=== PATIENT | male | born 1980 | race Caucasian/White ===

== ENCOUNTER 2019-07-21 18:19 | Emergency (ER) | payer OTHER ==
[~2019-07-21] VITALS: Ht 185.4 cm; Wt 77.1 kg
[2019-07-21] MEDS ORDERED: Augmentin 875-1 EACH PO (20:06)
[2019-07-21 21:24] LABS: BASOPHILS ABSOLUTE AUTO 0.06 K/mm3 (0.00-0.23); BASOPHILS PERCENT AUTO 1 % (0-2); EOSINOPHILS ABSOLUTE AUTO 0.36 K/mm3 (0.00-0.68); EOSINOPHILS PERCENT AUTO 4 % (0-6); Hematocrit 44.5 % (37.0-53.0); Hemoglobin 14.7 g/dL (13.5-17.5); IMMATURE GRAN ABSOLUTE AUTO 0.05 K/mm3 (0.00-0.10); IMMATURE GRAN PERCENT AUTO 1 % (0-1); LYMPHOCYTES ABSOLUTE AUTO 3.14 K/mm3 (0.84-5.20); LYMPHOCYTES PERCENT AUTO 37 % (21-46); MONOCYTES ABSOLUTE AUTO 0.63 K/mm3 (0.16-1.47); MONOCYTES PERCENT AUTO 7 % (4-13); Mean Corpuscular HGB 28.5 pg (26.0-34.0); Mean Corpuscular Volume 86 fL (80-100); Mean Platelet Volume 9.8 fL (9.1-12.4); NEUTROPHILS ABSOLUTE AUTO 4.26 K/mm3 (1.96-9.15); NEUTROPHILS PERCENT AUTO 50 % (41-73); Platelet Count 264 K/mm3 (150-400); RDW Coefficient Variation 12.3 % (11.7-14.2); RDW Standard Deviation 39.2 fL (35.1-46.3); Red Blood Cell Count 5.16 M/mm3 (4.30-5.90)
[2019-07-21 21:47] LABS: Alanine Aminotransfer (ALT/SGP 67 U/L (12-78); Albumin, Blood 3.9 g/dL (3.4-5.0); Albumin/Globulin Ratio 1.1 (0.8-1.8); Alk Phos 93 U/L (50-136); Anion Gap 5 mmol/L (6-16); Aspartate Aminotrans (AST/SGOT 59 U/L (12-37); Bilirubin, Total 0.6 mg/dL (0.1-1.0); Blood Urea Nitrogen 12 mg/dL (8-24); Bun/Creatinine Ratio 14.3 (12.0-20.0); CO2, Blood 30 mmol/L (21-32); Calcium, Blood 8.8 mg/dL (8.5-10.1); Chloride, Blood 106 mmol/L (98-108); Creatinine, Blood 0.84 mg/dL (0.60-1.20); Globulin, Blood 3.7 g/dL (2.2-4.0); Glomerular Filtration Rate >60 (60-); Glucose, Blood 82 mg/dL (70-99); Potassium, Blood 4.2 mmol/L (3.5-5.5); Sodium, Blood 141 mmol/L (136-145); Total Protein, Blood 7.6 g/dL (6.4-8.2)
[2019-07-21 21:51] LABS: Triiodothyronine, Free 3.05 pg/mL (2.18-3.98)
== END 2019-07-21 23:11 | disposition home or self-care (01) ==
LOC: ER 18:19
PROVIDERS: Emergency Medicine
DX: H49.23 Sixth [abducent] nerve palsy, bilateral (principal)
CPT/HCPCS: 70450; 70496; 70498; 80053; 84443; 84481; 85025; 96374-59; 99284-25; J1885; Q9967

== ENCOUNTER 2025-06-19 17:06 | Emergency (ER) | payer BC ==
[~2025-06-19] VITALS: Ht 185.4 cm; Wt 86.2 kg
[~2025-06-19 17:06] MED LIST: Augmentin 875-1 EACH PO
[2025-06-19 17:11] VITALS: BP 158/91
== END 2025-06-19 18:44 | disposition home or self-care (01) ==
LOC: ER 17:06
DX: M54.10 Radiculopathy, site unspecified (principal); D17.0 Benign lipomatous neoplasm of skin and subcutaneous tissue of head, face and neck; J45.909 Unspecified asthma, uncomplicated
CPT/HCPCS: 99283